=== PATIENT | female | born 1985 | race Caucasian/White ===

== ENCOUNTER 2020-11-06 15:02 | Emergency (ER) | payer OTHER ==
[~2020-11-06] VITALS: Ht 160 cm; Wt 65.8 kg
[2020-11-06 16:34] LABS: BASOPHILS ABSOLUTE AUTO 0.02 K/mm3 (0.00-0.23); BASOPHILS PERCENT AUTO 0 % (0-2); EOSINOPHILS PERCENT AUTO 2 % (0-6); Hematocrit 38.3 % (33.0-51.0); Hemoglobin 12.7 g/dL (11.5-16.0); IMMATURE GRAN ABSOLUTE AUTO 0.03 K/mm3 (0.00-0.10); IMMATURE GRAN PERCENT AUTO 0 % (0-1); LYMPHOCYTES ABSOLUTE AUTO 2.85 K/mm3 (0.84-5.20); LYMPHOCYTES PERCENT AUTO 28 % (21-46); MONOCYTES ABSOLUTE AUTO 0.61 K/mm3 (0.16-1.47); MONOCYTES PERCENT AUTO 6 % (4-13); Mean Corpuscular HGB 28.3 pg (26.0-34.0); Mean Corpuscular HGB Conc 33.2 g/dL (31.5-36.5); Mean Corpuscular Volume 85 fL (80-100); Mean Platelet Volume 11.3 fL (9.1-12.4); NEUTROPHILS PERCENT AUTO 63 % (41-73); Platelet Count 256 K/mm3 (150-400); RDW Standard Deviation 40.7 fL (35.1-46.3); Red Blood Cell Count 4.49 M/mm3 (3.80-5.20); White Blood Cell Count 10.11 K/mm3 (4.00-11.30)
[2020-11-06 16:53] LABS: Alanine Aminotransfer (ALT/SGP 21 U/L (12-78); Albumin, Blood 3.7 g/dL (3.4-5.0); Alk Phos 55 U/L (50-136); Anion Gap 7 mmol/L (6-16); Aspartate Aminotrans (AST/SGOT 11 U/L (12-37); Bilirubin, Total 0.3 mg/dL (0.1-1.0); Blood Urea Nitrogen 11 mg/dL (8-24); Bun/Creatinine Ratio 15.6 (12.0-20.0); CO2, Blood 23 mmol/L (21-32); Calcium, Blood 9.2 mg/dL (8.5-10.1); Chloride, Blood 109 mmol/L (98-108); Globulin, Blood 3.6 g/dL (2.2-4.0); Glomerular Filtration Rate >60 (60-); Glucose, Blood 101 mg/dL (70-99); Potassium, Blood 3.7 mmol/L (3.5-5.5); Sodium, Blood 139 mmol/L (136-145); Total Protein, Blood 7.3 g/dL (6.4-8.2)
[2020-11-06 16:58] LABS: Source, Urine Clean Catch
[2020-11-06 17:01] LABS: Appearance, Urine Hazy (Clear); Bilirubin, Urine Neg (Neg); Blood, Urine 5+ (Neg); Color, Urine Yellow (P-Yellow); Glucose Qualitative, Urine Neg (Neg); Ketones, Urine Neg (Neg); Leukocyte Esterase, Urine 1+ (Neg); Nitrite, Urine Neg (Neg); Protein, Urine 2+ (Neg); Urobilinogen, Urine 1+ (Normal)
[2020-11-06 17:04] LABS: Beta HCG, Quantitative, Serum 33500 mIU/mL (0-3)
[2020-11-06 17:14] LABS: Bacteria Not Seen /hpf; Red Blood Cells, Urine 50-100 /hpf (0-2); Squamous Epithelial Cells Rare /hpf (Few); White Blood Cells, Urine 0-2 /hpf (0-5)
== END 2020-11-06 19:15 | disposition home or self-care (01) ==
LOC: ER 15:02
PROVIDERS: Physician Assistant
DX: O20.9 Hemorrhage in early pregnancy, unspecified (principal); O26.891 Other specified pregnancy related conditions, first trimester; Z3A.01 Less than 8 weeks gestation of pregnancy; Z67.11 Type A blood, Rh negative
CPT/HCPCS: 36415; 76801; 76817; 80053; 81001; 84702; 85025; 86900; 86901; 99284-25

== ENCOUNTER 2021-05-17 00:18 | Inpatient (IN) | payer OTHER ==
[~2021-05-17] VITALS: Ht 160 cm; Wt 109.0 kg
[2021-05-17 01:10] LABS: BASOPHILS ABSOLUTE AUTO 0.02 K/mm3 (0.00-0.23); BASOPHILS PERCENT AUTO 0 % (0-2); EOSINOPHILS ABSOLUTE AUTO 0.22 K/mm3 (0.00-0.68); EOSINOPHILS PERCENT AUTO 2 % (0-6); Hemoglobin 11.3 g/dL (11.5-16.0); IMMATURE GRAN ABSOLUTE AUTO 0.09 K/mm3 (0.00-0.10); IMMATURE GRAN PERCENT AUTO 1 % (0-1); LYMPHOCYTES ABSOLUTE AUTO 3.16 K/mm3 (0.84-5.20); LYMPHOCYTES PERCENT AUTO 32 % (21-46); MONOCYTES ABSOLUTE AUTO 0.83 K/mm3 (0.16-1.47); MONOCYTES PERCENT AUTO 9 % (4-13); Mean Corpuscular HGB 29.2 pg (26.0-34.0); Mean Corpuscular HGB Conc 34.2 g/dL (31.5-36.5); Mean Corpuscular Volume 85 fL (80-100); Mean Platelet Volume 11.3 fL (9.1-12.4); NEUTROPHILS ABSOLUTE AUTO 5.48 K/mm3 (1.96-9.15); NEUTROPHILS PERCENT AUTO 56 % (41-73); Platelet Count 170 K/mm3 (150-400); RDW Coefficient Variation 13.8 % (11.7-14.2); RDW Standard Deviation 43.1 fL (35.1-46.3); Red Blood Cell Count 3.87 M/mm3 (3.80-5.20)
[2021-05-17] MEDS ORDERED: ASPI81CH PO (01:31)
[2021-05-17] MEDS ORDERED: 1/2 NS 250ml250 ML (01:31)
[2021-05-17] MEDS ORDERED: METF500 PO (01:31)
[2021-05-17] MEDS ORDERED: PRENATAL TABLE1 EAC2 PO (01:31)
[2021-05-17 01:47] LABS: Influenza A, PCR NEGATIVE (NEGATIVE); Influenza B, PCR NEGATIVE (NEGATIVE); Resp Syncytial Virus, PCR NEGATIVE (NEGATIVE)
[2021-05-17 01:59] LABS: SARS-Cov-2 (COVID-19) PCR, MMC POSITIVE (NEGATIVE)
[2021-05-17 03:24] LABS: PCO2 Cord - Arterial 55.9 mmHg (40-50); PO2 Cord - Arterial < 14 mmHg (16-20); pH Cord - Arterial 7.22 (7.28-7.35)
[2021-05-17 03:26] LABS: PCO2 Cord - Venous 41.1 mmHg (40-50); pH Umbilical Cord - Venous 7.33 (7.26-7.35)
[2021-05-17 06:05] LABS: BASOPHILS ABSOLUTE AUTO 0.03 K/mm3 (0.00-0.23); BASOPHILS PERCENT AUTO 0 % (0-2); EOSINOPHILS ABSOLUTE AUTO 0.03 K/mm3 (0.00-0.68); EOSINOPHILS PERCENT AUTO 0 % (0-6); Hematocrit 31.5 % (33.0-51.0); Hemoglobin 10.6 g/dL (11.5-16.0); IMMATURE GRAN ABSOLUTE AUTO 0.13 K/mm3 (0.00-0.10); IMMATURE GRAN PERCENT AUTO 1 % (0-1); LYMPHOCYTES ABSOLUTE AUTO 1.29 K/mm3 (0.84-5.20); LYMPHOCYTES PERCENT AUTO 8 % (21-46); MONOCYTES ABSOLUTE AUTO 0.57 K/mm3 (0.16-1.47); MONOCYTES PERCENT AUTO 3 % (4-13); Mean Corpuscular HGB Conc 33.7 g/dL (31.5-36.5); Mean Corpuscular Volume 86 fL (80-100); Mean Platelet Volume 11.1 fL (9.1-12.4); NEUTROPHILS ABSOLUTE AUTO 14.74 K/mm3 (1.96-9.15); NEUTROPHILS PERCENT AUTO 88 % (41-73); Platelet Count 163 K/mm3 (150-400); RDW Coefficient Variation 13.9 % (11.7-14.2); RDW Standard Deviation 43.6 fL (35.1-46.3); Red Blood Cell Count 3.65 M/mm3 (3.80-5.20); White Blood Cell Count 16.79 K/mm3 (4.00-11.30)
--- NOTE | 2021-05-17 15:15 | NUR ---
PT UP TO WHEELCHAIR TO GO TO NURSERY TO SEE INFANT.
--- NOTE | 2021-05-18 10:47 | NUR ---
AFTER SHOWERING PT AMBULATED DOWN TO NSY TO VISIT NB
== END 2021-05-19 23:55 | disposition home or self-care (01) | DRG 786 ==
LOC: OBS 00:18 → BC 00:18 → OBS 00:19 → BC 00:19
PROVIDERS: ADMIT Family Medicine
PROC: 8E0ZXY6 Isolation (ICD-10-PCS; 2021-05-17)
PROC: 10D00Z1 Extraction of Products of Conception, Low, Open Approach (ICD-10-PCS; principal; 2021-05-17 01:45)
DX: O42.913 Preterm premature rupture of membranes, unspecified as to length of time between rupture and onset of labor, third trimester (principal); U07.1 COVID-19; O98.52 Other viral diseases complicating childbirth; Z3A.35 35 weeks gestation of pregnancy; Z37.0 Single live birth; O32.1XX0 Maternal care for breech presentation, not applicable or unspecified; O24.425 Gestational diabetes mellitus in childbirth, controlled by oral hypoglycemic drugs; O99.824 Streptococcus B carrier state complicating childbirth; Z79.82 Long term (current) use of aspirin; Z79.84 Long term (current) use of oral hypoglycemic drugs; Z79.899 Other long term (current) drug therapy
CPT/HCPCS: 0241U; 36415; 59025; 82803; 82947; 85025; 86850; 86900; 86901; 87081; 87150; 96372; A9270; J0290; J0456; J0690; J0702; J1885; J2370; J2590; J2765; J7050; J7120